=== PATIENT | female | born 1955 | race Hispanic/Latino ===

== ENCOUNTER 2018-03-21 18:26 | Emergency (ER) | payer MEDICARE ==
[2018-03-21] MEDS ORDERED: DILAUDID IV ONE (22:47)
[2018-03-21] MEDS ORDERED: ZOFRAN ODT PO ONE (22:47)
[2018-03-21 23:08] LABS: Basophils % (Auto) 0.5 % (0.0-1.8); Eosinophils # (Auto) 0.3 K/mm3 (0.0-0.4); Eosinophils % (Auto) 2.8 % (0.0-4.3); Hematocrit 37.7 % (30.3-42.9); Hemoglobin 12.9 gm/dl (10.1-14.3); Lymphocytes # (Auto) 3.4 K/mm3 (1.2-5.4); Lymphocytes % (Auto) 36.5 % (13.4-35.0); Mean Corpuscular HGB Conc 34 % (30-34); Mean Corpuscular Hemoglobin 30 pg (28-32); Mean Corpuscular Volume 87 fl (79-97); Monocytes # (Auto) 0.8 K/mm3 (0.0-0.8); Monocytes % (Auto) 8.8 % (0.0-7.3); Platelet Count 267 K/mm3 (140-440); Red Blood Count 4.33 M/mm3 (3.65-5.03); Red Cell Distribution Width 14.2 % (13.2-15.2)
[2018-03-21 23:30] LABS: Alanine Aminotransferase 44 units/L (7-56); Albumin 4.5 g/dL (3.9-5); BUN/Creatinine Ratio 14; Blood Urea Nitrogen 10 mg/dL (7-17); Calcium 9.6 mg/dL (8.4-10.2); Hemolysis Index 4
--- NOTE | 2018-03-21 23:45 | XRay Report ---
FINAL REPORT PROCEDURE: XR CHEST ROUTINE 2V TECHNIQUE: PA and lateral chest radiographs were obtained. CPT 89998 HISTORY: chest pain COMPARISON: No prior studies are available for comparison. FINDINGS: Heart: Normal. Mediastinum/Vessels: Normal. Lungs/Pleural space: Normal. Bony thorax: No acute osseous abnormality. Other: IMPRESSION: Normal examination.
--- NOTE | 2018-03-22 00:31 | Emergency Department Report ---
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 Pain is worse with movement. No h/o trauma. Pt had an rt hip x-ray 5 days ago, which showed osteoarthritis. Never has had this pain before. PCP has given her Tylenol #3 for the pain. currently using 2 canes to walk with as opposed to 1, which is her baseline. H/o multiple spinal surgeries, years ago. For the past 2 days, pt has had intermittent CP/ tightness. It is nonexertional, nonpleuritic, nonpositional. Not affected by food. No h/o smoking. No fam h/o ACS. Severity scale (0 -10): 6 - Related Data Previous Rx's Medication Instructions Recorded Last Taken Type HYDROcodone/ACETAMINOPHEN [[place] 1 each PO Q6H PRN #10 tablet 03/22/18 Unknown Rx 5-325 Tablet] Allergies Allergy/AdvReac Type Severity Reaction Status Date / Time morphine Allergy Unknown Unverified 03/17/16 11:00 doxycycline calcium AdvReac Unknown Unverified 03/17/16 11:00 [From Vibramycin] doxycycline hyclate AdvReac Unknown Unverified 03/17/16 11:00 [From Vibramycin] doxycycline monohydrate AdvReac Unknown Unverified 03/17/16 11:00 [From Vibramycin] Penicillins AdvReac Unknown Unverified 03/17/16 11:00 sulfamethoxazole AdvReac Unknown Unverified 03/17/16 11:00 [From Septra] trimethoprim [From Septra] AdvReac Unknown Unverified 03/17/16 11:00 venlafaxine AdvReac Unknown Unverified 03/17/16 11:00 CLENDAMYACIN AdvReac Unknown Uncoded 03/17/16 11:00 ED Review of Systems ROS: Stated complaint: LOWER EXTREMITY/PELVIC PAIN/PAINFUL URINATION Other details as noted in HPI Comment: All other systems reviewed and negative Cardiovascular: chest pain Musculoskeletal: arthralgia, myalgia Neurological: abnormal gait. denies: numbness, paresthesias ED Past Medical Hx - Past Medical History Hx Arthritis: Yes Additional medical history: chronic back pain. - Social History Smoking Status: Never Smoker Substance Use Type: None - Medications Home Medications: Home Medications Medication Instructions Recorded Confirmed Last Taken Type HYDROcodone/ACETAMINOPHEN [[place] 1 each PO Q6H PRN #10 tablet 03/22/18 Unknown Rx 5-325 Tablet] ED Physical Exam - General Limitations: No Limitations General appearance: alert, in no apparent distress - Head Head exam: Present: atraumatic, normocephalic - Eye Eye exam: Present: normal appearance - ENT ENT exam: Present: mucous membranes moist - Neck Neck exam: Present: normal inspection - Respiratory Respiratory exam: Present: normal lung sounds bilaterally. Absent: respiratory distress - Cardiovascular Cardiovascular Exam: Present: regular rate, normal rhythm. Absent: systolic murmur, diastolic murmur, rubs, gallop - GI/Abdominal GI/Abdominal exam: Present: soft, tenderness (RLQ/RT inguinal crease), normal bowel sounds. Absent: guarding, rebound - Extremities Exam Extremities exam: Present: normal inspection - Back Exam Back exam: Present: normal inspection, paraspinal tenderness (Rt>LT paralumbar) , other (no saddle anesthesia, bilateral LE leg strength 5/5. Pain with any movement of her right hip. Mild Rt IT band tenderness) - Neurological Exam Neurological exam: Present: alert, oriented X3 - Psychiatric Psychiatric exam: Present: normal affect, normal mood - Skin Skin exam: Present: warm, dry, intact, normal color. Absent: rash ED Course Vital Signs 03/21/18 03/21/18 03/21/18 18:46 23:00 23:07 Temperature 98.3 F 98.1 F Pulse Rate 81 84 Respiratory 18 14 Rate Blood Pressure 130/78 170/96 Blood Pressure 152/79 [Left] O2 Sat by Pulse 95 99 99 Oximetry 03/22/18 03/22/18 03/22/18 00:57 01:00 02:13 Temperature Pulse Rate 77 81 77 Respiratory 13 11 L Rate Blood Pressure 151/77 156/84 156/84 Blood Pressure [Left] O2 Sat by Pulse 97 96 Oximetry - Reevaluation(s) Reevaluation #1: Patient was given IV Dilaudid for pain control. This helped, but pain is returning. Lab work is unremarkable. CT imaging of the spine shows mild to moderate now narrowing diffusely in the lumbar spine. I discussed the right hip with Dr. Noland, radiology, who said that there is no evidence of fracture at the lesser size greater trochanter, femoral neck, femoral head. He said the joint space seemed adequate. There is no joint effusion. I will order inflammatory markers as a screen for septic arthritis. I am concerned for possible avascular necrosis of the femoral head with lower suspicion for cauda equina. 03/22/18 01:46 Reevaluation #2: Inflammatory markers are unremarkable. I went back and discussed the patient's h/o presentation. She has no weakness or incontinence. She is endorsing right groin pain that is severe enough to limit her walking. Pt stop taking her tylenol #3s 3 days ago because she felt that they weren't helping. XR rt hip are unremarkable. Pt is unable to get a MRI hip 2/2 nerve stimulator. Will have her follow up with her orthopedist for further evaluation of her hip and her pcp for further pain control. Low suspicion for cauda equina. 03/22/18 03:06 ED Medical Decision Making - Lab Data Result diagrams: 03/21/18 22:51 03/21/18 22:51 - EKG Data -: EKG Interpreted by Me EKG shows normal: sinus rhythm, axis, intervals, QRS complexes, ST-T waves Rate: normal - EKG Data Interpretation: no acute changes - Differential Diagnosis cauda equina, appendicitis, fracture, dislocation, osteo, DDD, strain Critical care attestation.: If time is entered above; I have spent that time in minutes in the direct care of this critically ill patient, excluding procedure time. ED Disposition Clinical Impression: Right groin pain Disposition: DC-01 TO HOME OR SELFCARE Is pt being admited?: No Does the pt Need Aspirin: No Condition: Stable Additional Instructions: Please follow up with your orthopedic doctor for further evaluation of your right hip. Use a walker to help you be more stable when walking. Talk with your family doctor about better pain control. Prescriptions: HYDROcodone/ACETAMINOPHEN [[place] 5-325 Tablet] 1 each PO Q6H PRN #10 tablet PRN Reason: Pain, Moderate (4-6) Referrals: PRIMARY CARE,MD [Primary Care Provider] - 3-5 Days
--- NOTE | 2018-03-22 01:16 | Cat Scan Report ---
FINAL REPORT EXAM: CT ABDOMEN PELVIS W CON HISTORY: Rt flank/hip pain TECHNIQUE: Routine axial imaging was obtained of the abdomen and pelvis following the intravenous injection of 100 cc of Omnipaque 300. Delayed imaging was obtained through the kidneys ureters and bladder. Sagittal and coronal reconstructions were reviewed. FINDINGS: The lung bases do not show infiltrates or effusions. There is a small hiatal hernia. The liver reveals diminished attenuation suggesting mild hepatic steatosis. The gallbladder has been removed. The biliary tree is not dilated. The pancreas is mildly atrophic. The spleen and adrenal glands appear normal. The kidneys enhance normally. There is no evidence of hydronephrosis. There is a punctate calcification lower pole the right kidney. There calcification of the abdominal aorta. The vasculatures otherwise enhance normally. There is a small umbilical hernia containing omental fat. The appendix is not enlarged. Bowel loops are normal in caliber and course. There are uncomplicated diverticula in the sigmoid colon. In the pelvis the uterus and bladder appear normal. There is a small right inguinal hernia containing omental fat. The skeletal structures reveal multilevel disc degeneration in the lumbar spine. There is also a TENS unit overlying the left flank area with leads extending into lower thoracic spine. IMPRESSION: Cholecystectomy. No acute process in the abdomen and pelvis. Mild hepatic steatosis. No evidence of hydronephrosis or appendicitis. Small umbilical hernia containing omental fat. Uncomplicated sigmoid diverticulosis. Multilevel disc degeneration in the lumbar spine.
--- NOTE | 2018-03-22 01:20 | Cat Scan Report ---
FINAL REPORT EXAM: CT LUMBAR SPINE WO CON HISTORY: Rt flank/hip pain TECHNIQUE: Routine axial imaging was obtained of the lumbar spine without IV contrast with sagittal and coronal reconstructions. FINDINGS: At the L5-S1 level the disc height is preserved. There is bilateral moderate to severe facet arthropathy changes. There is canal stenosis at this level. At the L4-5 level there is moderate to severe narrowing of the disc with moderate canal stenosis. There is severe bilateral facet arthropathy changes. At the L3-4 level there is mild narrowing of the disc. There moderate to severe canal stenosis with bilateral moderate facet arthropathy changes. At the L2-3 level there gopf-[id number] narrowing of the disc. There is moderate canal stenosis with bilateral hzai-il-dywvktuf facet arthropathy changes. At the L1-2 level the disc height is preserved. The canal size is normal. There is mild facet arthropathy changes. At the T12-L1 level there is severe disc degeneration with endplate spurring. The canal size is borderline. The surrounding soft tissues reveal TENS unit leads extending into the lower thoracic spine. There is calcification of the abdominal aorta. IMPRESSION: Multilevel disc degeneration with multilevel spinal stenosis changes and facet arthropathy changes as described. No evidence of acute fracture.
[2018-03-22] MEDS ORDERED: NORCO 5/325 PO ONE (01:29)
[2018-03-22 01:32] VITALS: BP 156/84
--- NOTE | 2018-03-22 02:41 | XRay Report ---
FINAL REPORT EXAM: XR HIP 2-3V RT HISTORY: right hip pain TECHNIQUE: An AP view of the pelvis was obtained with a frogleg view of the right hip. FINDINGS: There is very mild narrowing of the right hip joint space. There is no evidence of fracture or joint effusion. There is generalized osteoporosis. The left hip joint and SI joints are unremarkable. Excreted IV contrast is noted in the bladder. IMPRESSION: Very mild arthritic changes right hip joint. No evidence of fracture or joint effusion.
[2018-03-22] MEDS ORDERED: PERCOCET 5/325 PO ONE (03:04)
== END 2018-03-22 03:30 | disposition home or self-care (01) ==
LOC: ED 18:26
DX: M25.551 Pain in right hip (principal); Z88.5 Allergy status to narcotic agent; Z88.1 Allergy status to other antibiotic agents; Z88.2 Allergy status to sulfonamides; Z88.0 Allergy status to penicillin; M19.90 Unspecified osteoarthritis, unspecified site; M54.9 Dorsalgia, unspecified; G89.29 Other chronic pain
CPT/HCPCS: 36415; 71046; 72131; 73502; 74177; 80053; 84484; 85025; 85652; 86140; 93005; 93010; 96374; 99284; J1170; Q9967; Q0162

== ENCOUNTER 2019-06-12 22:17 | Observation (INO) | payer MEDICARE ==
[2019-06-12] MEDS ORDERED: ASPIRIN 325 MG TAB PO ONE (22:39)
[2019-06-12 22:51] LABS: Basophils % (Auto) 0.3 % (0.0-1.8); Eosinophils # (Auto) 0.2 K/mm3 (0.0-0.4); Eosinophils % (Auto) 1.9 % (0.0-4.3); Hemoglobin 12.4 gm/dl (10.1-14.3); Lymphocytes % (Auto) 25.5 % (13.4-35.0); Mean Corpuscular HGB Conc 34 % (30-34); Mean Corpuscular Volume 86 fl (79-97); Monocytes # (Auto) 0.9 K/mm3 (0.0-0.8); Monocytes % (Auto) 7.8 % (0.0-7.3); Platelet Count 238 K/mm3 (140-440); Red Blood Count 4.32 M/mm3 (3.65-5.03)
[2019-06-12] MEDS ORDERED: SODIUM CHLORIDE 0.9% 1000 ML IV SOLN IV ONE (22:55)
--- NOTE | 2019-06-12 23:01 | Emergency Department Report ---
HPI - General Chief Complaint: Dizziness Time Seen by Provider: 06/12/19 22:40 - HPI HPI: Room 23 The patient is a 64-year-old female presenting with a chief complaint of dizziness. The patient states today she felt very tired before having dinner. While eating dinner the patient continued to feel tired and states when she stood up she began to feel lightheaded and dizzy she states she heard "waves" in her ear and ice to the back of her head. The patient states she sat down but her symptoms did not improve. Family states at 21:5 the patient was talking but not making sense and appeared to have slurred speech. Subsequently the patient was brought into the ED. When asked how she is feeling currently the patient states she feels tired and lightheaded Location: [See above] Duration: [See above] Quality: [See above] Severity: [See above] Timing: [See above] Context: [See above] Modifying factors: [See above] Associated signs and symptoms: [see above] ED Past Medical Hx - Past Medical History Previous Medical History?: Yes Hx Diabetes: Yes Hx Arthritis: Yes Additional medical history: chronic back pain. - Surgical History Past Surgical History?: No Hx Cholecystectomy: Yes Additional Surgical History: Bilateral tubal ligation, 2, tonsillectomy, back surgery, nerve stimulator - Family History Family history: no significant - Social History Smoking Status: Former Smoker (none 40 years) Substance Use Type: None (denies illicit drug use) - Medications Home Medications: Home Medications Medication Instructions Recorded Confirmed Last Taken Type HYDROcodone/ACETAMINOPHEN [[place] 1 each PO Q6H PRN #10 tablet 03/22/18 Unknown Rx 5-325 Tablet] ED Review of Systems ROS: Stated complaint: DIZZINESS/LIGHTHEADED Other details as noted in HPI Constitutional: no symptoms reported Eyes: denies: eye pain ENT: denies: throat pain Respiratory: denies: no symptoms reported Cardiovascular: denies: chest pain Gastrointestinal: denies: abdominal pain Genitourinary: denies: dysuria Musculoskeletal: denies: back pain Neurological: other (lightheadedness) Physical Exam - Physical Exam Vital Signs: Vital Signs 06/12/19 22:36 Temperature 98 F Pulse Rate 84 Respiratory 20 Rate Blood Pressure 96/67 O2 Sat by Pulse 99 Oximetry Physical Exam: GENERAL: The patient is well-developed well-nourished female lying on stretcher not appearing to be in acute distress. [] HEENT: Normocephalic. Atraumatic. Extraocular motions are intact. Patient has moist mucous membranes. NECK: Supple. No meningitic signs are noted. Trachea midline CHEST/LUNGS: Clear to auscultation. There is no respiratory distress noted. HEART/CARDIOVASCULAR: Regular. There is no tachycardia. There is no gallop rub or murmur. ABDOMEN: Abdomen is soft, nontender. Patient has normal bowel sounds. There is no abdominal distention. SKIN: There is no rash. There is no edema. There is no diaphoresis. NEURO: The patient is awake, alert, and oriented. The patient is cooperative. The patient has no focal neurologic deficits. The patient has normal speech. Cranial nerves II through XII grossly intact, no drift MUSCULOSKELETAL: There is no evidence of acute injury. ED Course Vital Signs 06/12/19 22:36 Temperature 98 F Pulse Rate 84 Respiratory 20 Rate Blood Pressure 96/67 O2 Sat by Pulse 99 Oximetry ED Medical Decision Making - Lab Data Result diagrams: 06/12/19 22:39 06/12/19 23:07 Laboratory Tests 06/12/19 06/12/19 06/12/19 22:39 22:39 23:07 WBC 11.9 H RBC 4.32 Hgb 12.4 Hct 37.0 MCV 86 MCH 29 MCHC 34 RDW 14.0 Plt Count 238 Lymph % (Auto) 25.5 [place] % (Auto) 7.8 H Eos % (Auto) 1.9 Baso % (Auto) 0.3 Lymph # 3.0 [place] # 0.9 H Eos # 0.2 Baso # 0.0 Seg Neutrophils % 64.5 Seg Neutrophils # 7.6 PT INR APTT Sodium 135 L 134 L Potassium 3.9 4.0 Chloride 95.5 L 95.8 L Carbon Dioxide 23 24 Anion Gap 20 18 BUN 23 H 22 H Creatinine 1.6 H 1.6 H Estimated GFR 32 32 BUN/Creatinine Ratio 14 14 Glucose 209 H 208 H Lactic Acid Calcium 9.2 9.3 Total Bilirubin 0.30 AST 21 ALT 22 Alkaline Phosphatase 80 Troponin T < 0.010 Total Protein 6.9 Albumin 3.9 Albumin/Globulin Ratio 1.3 TSH Free T4 Urine Color Urine Turbidity Urine pH Ur Specific [place] Urine Protein Urine Glucose (UA) Urine Ketones Urine Blood Urine Nitrite Urine Bilirubin Urine Urobilinogen Ur Leukocyte Esterase Urine WBC (Auto) Urine RBC (Auto) U Epithel Cells (Auto) Urine Bacteria (Auto) Urine Mucus 06/12/19 06/12/19 06/12/19 23:07 23:07 23:07 WBC RBC Hgb Hct MCV MCH MCHC RDW Plt Count Lymph % (Auto) [place] % (Auto) Eos % (Auto) Baso % (Auto) Lymph # [place] # Eos # Baso # Seg Neutrophils % Seg Neutrophils # PT 14.0 INR 1.09 APTT 29.0 Sodium Potassium Chloride Carbon Dioxide Anion Gap BUN Creatinine Estimated GFR BUN/Creatinine Ratio Glucose Lactic Acid 1.60 Calcium Total Bilirubin AST ALT Alkaline Phosphatase Troponin T Total Protein Albumin Albumin/Globulin Ratio TSH 5.040 H Free T4 1.54 H Urine Color Urine Turbidity Urine pH Ur Specific [place] Urine Protein Urine Glucose (UA) Urine Ketones Urine Blood Urine Nitrite Urine Bilirubin Urine Urobilinogen Ur Leukocyte Esterase Urine WBC (Auto) Urine RBC (Auto) U Epithel Cells (Auto) Urine Bacteria (Auto) Urine Mucus 06/12/19 Unknown WBC RBC Hgb Hct MCV MCH MCHC RDW Plt Count Lymph % (Auto) [place] % (Auto) Eos % (Auto) Baso % (Auto) Lymph # [place] # Eos # Baso # Seg Neutrophils % Seg Neutrophils # PT INR APTT Sodium Potassium Chloride Carbon Dioxide Anion Gap BUN Creatinine Estimated GFR BUN/Creatinine Ratio Glucose Lactic Acid Calcium Total Bilirubin AST ALT Alkaline Phosphatase Troponin T Total Protein Albumin Albumin/Globulin Ratio TSH Free T4 Urine Color Yellow Urine Turbidity Cloudy Urine pH 5.0 Ur Specific [place] 1.006 Urine Protein <15 mg/dl Urine Glucose (UA) Neg Urine Ketones Neg Urine Blood Neg Urine Nitrite Neg Urine Bilirubin Neg Urine Urobilinogen < 2.0 Ur Leukocyte Esterase Lg Urine WBC (Auto) 34.0 H Urine RBC (Auto) 13.0 U Epithel Cells (Auto) 2.0 Urine Bacteria (Auto) 1+ Urine Mucus Few - EKG Data -: EKG Interpreted by Me EKG shows normal: sinus rhythm Rate: normal - EKG Data When compared to previous EKG there are: previous EKG unavailable Interpretation: other (no ischemic changes seen) - Radiology Data Radiology results: report reviewed (CT head, chest x-ray), image reviewed (CT head, chest x-ray) interpreted by me: Chest x-ray-no focal infiltrates, no pneumothorax [address] [address] Cat Scan Report Signed Patient: BARBARA DARLING MR#: [id number] : 1955 Acct:[id number] Age/Sex: 64 / F ADM Date: 06/12/19 Loc: ED Attending Dr: Ordering Physician: AUREA GONCALVES MD Date of Service: 06/12/19 Procedure(s): CT head/brain wo con Accession Number(s): [id number] cc: AUREA GONCALVES MD CT head without contrast INDICATION : Altered mental status. TECHNIQUE: Axial imaging performed from the skull apex through the skull base without the use of contrast. All CT examinations performed at this facility utilize dose modulation, iterative reconstruction or weight-based dosing, when appropriate, to reduce radiation dose to as low as reasonably achievable. COMPARISON: None FINDINGS: No acute intracranial hemorrhage or parenchymal abnormality. Ventricles are normal in size and appear symmetric. Soft tissues including the orbits appear normal. No acute osseous abnormality. Sinuses and mastoid air cells are clear. IMPRESSION: No acute abnormality. Signer Name: Mello Fuchs MD Signed: 06/12/2019 11:56 PM Workstation Name: [id number] Transcribed By: BC Dictated By: Mello Fuchs MD Electronically Authenticated By: Mello Fuchs MD Signed Date/Time: 06/12/192355 DD/ 54 TD/TT: [address] [address] XRay Report Signed Patient: BARBARA DARLING MR#: [id number] : 1955 Acct:[id number] Age/Sex: 64 / F ADM Date: 06/12/19 Loc: ED Attending Dr: Ordering Physician: AUREA GONCALVES MD Date of Service: 06/12/19 Procedure(s): XR chest 1V ap Accession Number(s): [id number] cc: AUREA GONCALVES MD Fluoro Time In Minutes: CHEST 1 VIEW INDICATION / CLINICAL INFORMATION: Chest Pain. COMPARISON: None available. FINDINGS: SUPPORT DEVICES: None. HEART / MEDIASTINUM: No significant abnormality. LUNGS / PLEURA: No significant pulmonary or pleural abnormality. No pneumothorax. ADDITIONAL FINDINGS: No significant additional findings. IMPRESSION: 1. No acute findings. Signer Name: Mello Fuchs MD Signed: 06/12/2019 11:27 PM Workstation Name: [id number] Transcribed By: HERBERT Dictated By: Mello Fuchs MD Electronically Authenticated By: Mello Fuchs MD Signed Date/Time: 06/12/192326 DD/ 26 TD/TT: - Differential Diagnosis dehydration, sepsis, symptomatic anemia Critical care attestation.: If time is entered above; I have spent that time in minutes in the direct care of this critically ill patient, excluding procedure time. ED Disposition Clinical Impression: UTI (urinary tract infection), Hypotension, Lightheadedness Disposition: 09 OP ADMIT IP TO THIS HOSP Is pt being admited?: Yes Does the pt Need Aspirin: Yes Condition: Fair Referrals: PRIMARY CARE, [Primary Care Provider] - 3-5 Days Time of Disposition: 02:01 (hospitalist paged (Dr. Jossy Tapia))
[2019-06-12 23:11] LABS: BUN/Creatinine Ratio 14; Blood Urea Nitrogen 23 mg/dL (7-17); Calcium 9.2 mg/dL (8.4-10.2); Hemolysis Index 32
--- NOTE | 2019-06-12 23:32 | XRay Report ---
CHEST 1 VIEW INDICATION / CLINICAL INFORMATION: Chest Pain. COMPARISON: None available. FINDINGS: SUPPORT DEVICES: None. HEART / MEDIASTINUM: No significant abnormality. LUNGS / PLEURA: No significant pulmonary or pleural abnormality. No pneumothorax. ADDITIONAL FINDINGS: No significant additional findings. IMPRESSION: 1. No acute findings. Signer Name: Mello Fuchs MD Signed: 06/12/2019 11:27 PM Workstation Name: [id number]
[2019-06-12 23:40] LABS: INR 1.09 (0.87-1.13)
[2019-06-12 23:52] LABS: Albumin 3.9 g/dL (3.9-5); Calcium 9.3 mg/dL (8.4-10.2)
[2019-06-12 23:56] LABS: Free T4 (Free Thyroxine) 1.54 ng/dL (0.76-1.46)
--- NOTE | 2019-06-13 | Cat Scan Report ---
CT head without contrast INDICATION : Altered mental status. TECHNIQUE: Axial imaging performed from the skull apex through the skull base without the use of con trast. All CT examinations performed at this facility utilize dose modulation, iterative reconstruct ion or weight-based dosing, when appropriate, to reduce radiation dose to as low as reasonably achiev able. COMPARISON: None FINDINGS: No acute intracranial hemorrhage or parenchymal abnormality. Ventricles are normal in si ze and appear symmetric. Soft tissues including the orbits appear normal. No acute osseous abnorm ality. Sinuses and mastoid air cells are clear. IMPRESSION: No acute abnormality. Signer Name: Mello Fuchs MD Signed: 06/12/2019 11:56 PM Workstation Name: [id number]
[2019-06-13 01:37] LABS: Bacteria,Urine 1+ /HPF (Negative); Bilirubin,Urine NEG (Negative); Blood,Urine NEG (Negative); Color,Urine Yellow (Yellow); Mucus,Urine FEW /HPF; Protein,Urine <15 mg/dL mg/dL (Negative); Urobilinogen,Urine < 2.0 mg/dL (<2.0)
[2019-06-13] MEDS ORDERED: ONDANSETRON 4 MG/2 ML INJ IV PRN (02:16)
[2019-06-13] MEDS ORDERED: DEXTROSE 50% IN WATER (25GM) 50 ML SYRINGE IV PRN (02:16)
[2019-06-13] MEDS ORDERED: ACETAMINOPHEN 325 MG TAB PO PRN ×2 (02:16)
[2019-06-13] MEDS ORDERED: oxyCODONE /ACETAMINOPHEN 5-325MG TAB PO PRN (02:18)
--- NOTE | 2019-06-13 02:35 | History and Physical Report ---
<PAMELA SUERO - Last Filed: 06/13/19 03:31> History of Present Illness Date of examination: 06/13/19 Date of admission: 06/13/2019 Chief complaint: Slurred speech, dizziness History of present illness: 64-year-old female with history of IBS, chronic back pain, hypertension, diabetes, and arthritis who presents [facility] with complaints of dizziness and slurred speech. Patient's daughter is present at bedside and has assisted with providing history. Yesterday evening prior to having dinner, pt states that she did not feel as if she was in her usual state of health. For some reason she felt very tired. When she stood up from the dinner table, she felt dizzy and lightheaded. She describes the feeling as hearing "waves in the ears and ice to back of head". She immediately sat down hoping that she would feel better, her symptoms did not improve. Shortly after her family noticed that her speech was slurred for approximately 1 hour prior has since resolved. Denies: n/v, headache, cough, dysuria, visual disturbances or recent fall/injury Past History Past Medical History: arthritis, diabetes, hypertension, renal failure (IBS), other (chronic back pain, debility ambulates with walker/cane at baseline) Past Surgical History: cholecystectomy, (x2), tonsillectomy, Other (Bilateral tubal ligation, multiple back surgeries, nerve stimulator) Social history: lives with family Family history: hypertension Medications and Allergies Allergies Allergy/AdvReac Type Severity Reaction Status Date / Time morphine Allergy Unknown Unverified 03/17/16 11:00 doxycycline calcium AdvReac Unknown Unverified 03/17/16 11:00 [From Vibramycin] doxycycline hyclate AdvReac Unknown Unverified 03/17/16 11:00 [From Vibramycin] doxycycline monohydrate AdvReac Unknown Unverified 03/17/16 11:00 [From Vibramycin] Penicillins AdvReac Unknown Unverified 03/17/16 11:00 sulfamethoxazole AdvReac Unknown Unverified 03/17/16 11:00 [From Septra] trimethoprim [From Septra] AdvReac Unknown Unverified 03/17/16 11:00 venlafaxine AdvReac Unknown Unverified 03/17/16 11:00 CLENDAMYACIN AdvReac Unknown Uncoded 03/17/16 11:00 Home Medications Medication Instructions Recorded Confirmed Last Taken Type HYDROcodone/ACETAMINOPHEN [[place] 1 each PO Q6H PRN #10 tablet 03/22/18 Unknown Rx 5-325 Tablet] Amitiza 24 mg PO PRN 06/13/19 06/13/19 06/06/19 History Aspirin BABY CHEW TAB 81 mg PO ONCE 06/13/19 06/13/19 Unknown History AtorvaSTATin 20 mg PO ONCE 06/13/19 06/13/19 06/12/19 22:50 History Benadryl 06/13/19 Unknown History Calcium 600MG TAB 600 mg PO ONCE 06/13/19 06/13/19 06/12/19 19:35 History 600 mg Dicyclomine 10 mg PO TID 06/13/19 06/13/19 Unknown History Fish Oil 06/13/19 Unknown History Inderal 80 mg PO ONCE 06/13/19 06/13/19 06/12/19 19:35 History 80 mg Januvia 100 mg PO ONCE 06/13/19 06/13/19 06/11/19 22:50 History 100 mg Multivitamin Tab PO ONCE 06/13/19 06/12/19 10:20 History 1 tab Neurontin 800 mg PO TID 06/13/19 06/13/19 Unknown History Norvasc 10 mg PO ONCE 06/13/19 06/13/19 06/12/19 10:15 History 10 mg Protonix TAB 40 mg PO ONCE 06/13/19 06/13/19 Unknown History Ranitidine HCl 300 mg PO ONCE 06/13/19 06/13/19 Unknown History Vitamin B Complex PO ONCE 06/13/19 06/12/19 10:15 History Zyrtec 10mg tab 10 mg PO ONCE 06/13/19 06/13/19 06/12/19 10:20 History glipiZIDE 10 mg PO BID 06/13/19 06/13/19 06/12/19 19:35 History tiZANidine 4 mg PO Q6HR 06/13/19 06/13/19 06/12/19 20:30 History 4 mg traZODone 50 mg PO PRN 06/13/19 06/13/19 06/11/19 22:55 History Clopidogrel [Plavix] 75 mg PO QDAY #30 tablet 06/14/19 Unknown Rx levoFLOXacin [Levaquin TAB] 500 mg PO QDAY #3 tablet 06/14/19 Unknown Rx Active Meds: Active Medications Acetaminophen (Tylenol) 650 mg PO Q4H PRN PRN Reason: Pain MILD(1-3)/Fever >100.5/KIDD Acetaminophen (Tylenol) 650 mg PO Q4H PRN PRN Reason: Pain, Mild (1-3) Dextrose (D50w (25gm) Syringe) 50 ml IV Q30MIN PRN PRN Reason: Hypoglycemia Enoxaparin Sodium (Enoxaparin) 30 mg SUB-Q QDAY MESSI Levofloxacin/Dextrose (Levaquin 500mg/100ml) 500 mg in 100 mls @ 100 mls/hr IV ONCE ONE; Protocol Stop: 06/13/19 02:58 Sodium Chloride (Nacl 0.9% 1000 Ml) 1,000 mls @ 100 mls/hr IV DIRECT MESSI Stop: 06/13/19 12:00 Levofloxacin/Dextrose (Levaquin 500mg/100ml) 500 mg in 100 mls @ 100 mls/hr IV Q24HR MESSI; Protocol Insulin Human Lispro (Humalog) 0 unit SUB-Q ACHS MESSI; Protocol Ondansetron HCl (Zofran) 4 mg IV Q6H PRN PRN Reason: Nausea And Vomiting Oxycodone/Acetaminophen (Percocet 5/325) 1 tab PO Q6H PRN PRN Reason: Pain, Moderate (4-6) Sodium Chloride (Sodium Chloride Flush Syringe 10 Ml) 10 ml IV BID MESSI Sodium Chloride (Sodium Chloride Flush Syringe 10 Ml) 10 ml IV PRN PRN PRN Reason: LINE FLUSH Review of Systems All systems: negative Constitutional: fatigue Neurological: change in speech, change in mentation, confusion, other (light headedness, dizzy) Exam - Physical Exam Narrative exam: General appearance: Present: No acute distress, alert and oriented 3, pleasant, well-nourished, older adult female - EENT Eyes: Present: PERRL, EOM intact ENT: hearing intact, normal dentition - Neck Neck: Present: supple, normal ROM - Respiratory Respiratory effort: Non-labored Respiratory: bilateral: CTA - Cardiovascular Heart rate:60 (bpm) Rhythm:SR Heart Sounds: Present: S1, S2. - Extremities Extremities: no ischemia, pulses intact - Peripheral Assessment Peripheral Pulses: within normal limits - Abdominal General gastrointestinal: soft, non-tender, normal bowel sounds, - Integumentary Integumentary: Present: warm, dry - Musculoskeletal Musculoskeletal: generalized weakness, 5/5 motor strength in upper extremities, 5/5 motor strength in left lower extremity, limited mobility right lower extremity able to move against gravity but not resistance, ambulates with cane or walker at baseline -Neurological Neurological: CN II-XII grossly intact - Psychiatric Psychiatric: cooperative - Constitutional Vitals: Temp Pulse Resp BP Pulse Ox 98 F 71 11 L 105/64 100 06/12/19 22:36 06/12/19 23:01 06/12/19 23:01 06/13/19 00:00 06/13/19 00:00 Results - Labs CBC & Chem 7: 06/12/19 22:39 06/12/19 23:07 Labs: Laboratory Last Values WBC 11.9 K/mm3 (4.5-11.0) H 06/12/19 22:39 RBC 4.32 M/mm3 (3.65-5.03) 06/12/19 22:39 Hgb 12.4 gm/dl (10.1-14.3) 06/12/19 22:39 Hct 37.0 % (30.3-42.9) 06/12/19 22:39 MCV 86 fl (79-97) 06/12/19 22:39 MCH 29 pg (28-32) 06/12/19 22:39 MCHC 34 % (30-34) 06/12/19 22:39 RDW 14.0 % (13.2-15.2) 06/12/19 22:39 Plt Count 238 K/mm3 (140-440) 06/12/19 22:39 Lymph % (Auto) 25.5 % (13.4-35.0) 06/12/19 22:39 [place] % (Auto) 7.8 % (0.0-7.3) H 06/12/19 22:39 Eos % (Auto) 1.9 % (0.0-4.3) 06/12/19 22:39 Baso % (Auto) 0.3 % (0.0-1.8) 06/12/19 22:39 Lymph # 3.0 K/mm3 (1.2-5.4) 06/12/19 22:39 [place] # 0.9 K/mm3 (0.0-0.8) H 06/12/19 22:39 Eos # 0.2 K/mm3 (0.0-0.4) 06/12/19 22:39 Baso # 0.0 K/mm3 (0.0-0.1) 06/12/19 22:39 Seg Neutrophils % 64.5 % (40.0-70.0) 06/12/19 22:39 Seg Neutrophils # 7.6 K/mm3 (1.8-7.7) 06/12/19 22:39 PT 14.0 Sec. (12.2-14.9) 06/12/19 23:07 INR 1.09 (0.87-1.13) 06/12/19 23:07 APTT 29.0 Sec. (24.2-36.6) 06/12/19 23:07 Sodium 134 mmol/L (137-145) L 06/12/19 23:07 Potassium 4.0 mmol/L (3.6-5.0) 06/12/19 23:07 Chloride 95.8 mmol/L (98-107) L 06/12/19 23:07 Carbon Dioxide 24 mmol/L (22-30) 06/12/19 23:07 Anion Gap 18 mmol/L 06/12/19 23:07 BUN 22 mg/dL (7-17) H 06/12/19 23:07 Creatinine 1.6 mg/dL (0.7-1.2) H 06/12/19 23:07 Estimated GFR 32 ml/min 06/12/19 23:07 BUN/Creatinine Ratio 14 % 06/12/19 23:07 Glucose 208 mg/dL (65-100) H 06/12/19 23:07 Lactic Acid 1.60 mmol/L (0.7-2.0) 06/12/19 23:07 Calcium 9.3 mg/dL (8.4-10.2) 06/12/19 23:07 Total Bilirubin 0.30 mg/dL (0.1-1.2) 06/12/19 23:07 AST 21 units/L (5-40) 06/12/19 23:07 ALT 22 units/L (7-56) 06/12/19 23:07 Alkaline Phosphatase 80 units/L (35-129) 06/12/19 23:07 Troponin T < 0.010 ng/mL (0.00-0.029) 06/12/19 22:39 Total Protein 6.9 g/dL (6.3-8.2) 06/12/19 23:07 Albumin 3.9 g/dL (3.9-5) 06/12/19 23:07 Albumin/Globulin Ratio 1.3 % 06/12/19 23:07 TSH 5.040 mlU/mL (0.270-4.200) H 06/12/19 23:07 Free T4 1.54 ng/dL (0.76-1.46) H 06/12/19 23:07 Urine Color Yellow (Yellow) 06/12/19 Unknown Urine Turbidity Cloudy (Clear) 06/12/19 Unknown Urine pH 5.0 (5.0-7.0) 06/12/19 Unknown Ur Specific [place] 1.006 (1.003-1.030) 06/12/19 Unknown Urine Protein <15 mg/dl mg/dL (Negative) 06/12/19 Unknown Urine Glucose (UA) Neg mg/dL (Negative) 06/12/19 Unknown Urine Ketones Neg mg/dL (Negative) 06/12/19 Unknown Urine Blood Neg (Negative) 06/12/19 Unknown Urine Nitrite Neg (Negative) 06/12/19 Unknown Urine Bilirubin Neg (Negative) 06/12/19 Unknown Urine Urobilinogen < 2.0 mg/dL (<2.0) 06/12/19 Unknown Ur Leukocyte Esterase Lg (Negative) 06/12/19 Unknown Urine WBC (Auto) 34.0 /HPF (0.0-6.0) H 06/12/19 Unknown Urine RBC (Auto) 13.0 /HPF (0.0-6.0) 06/12/19 Unknown U Epithel Cells (Auto) 2.0 /HPF (0-13.0) 06/12/19 Unknown Urine Bacteria (Auto) 1+ /HPF (Negative) 06/12/19 Unknown Urine Mucus Few /HPF 06/12/19 Unknown - Imaging and Cardiology Imaging and Cardiology: CT Head: FINDINGS: No acute intracranial hemorrhage or parenchymal abnormality. Ventricles are normal in size and appear symmetric. Soft tissues including the orbits appear normal. No acute osseous abnormality. Sinuses and mastoid air cells are clear. IMPRESSION: No acute abnormality. CXR: FINDINGS: SUPPORT DEVICES: None. HEART / MEDIASTINUM: No significant abnormality. LUNGS / PLEURA: No significant pulmonary or pleural abnormality. No pneumothorax. ADDITIONAL FINDINGS: No significant additional findings. IMPRESSION: 1. No acute findings. Assessment and Plan Assessment and plan: 64-year-old female with history of IBS, chronic back pain, hypertension, diabetes, and arthritis who presents [facility] ED with complaints of dizziness and slurred speech. At time of my examination patient is sitting up in stretcher able to maintain conversation. When asked how she feels, she states that she is tired but doesn't feel as tired as before. Patient has nerve stimulator to left buttock. At baseline patient ambulates with cane and or walker. She has limited mobility to right lower extremity d/t chronic back pain and multiple back surgeries. Will admit for further evaluation. UTI -Urine WBC 34 -Urine culture pending -Start IV Abx TIA R/O CVA -Pt c/o of slurred speech x1 hour, confirmed by daughter at bedside -CT Head negative -Patient has implanted nerve stimulator unable to have MRI Head -Neurology consulted -Neuro Checks -PT/OT eval pending -Lipid panel pending -Start ASA and statin ALY -??Superimposed chronic renal impairment -Cr on admission 1.6 with GFR 32 -Baseline 0.7 (03/2018) -Avoid nephrotoxin agents -Renal dose all meds DM2 -POC BG monitoring -SSI coverage prn -Hgb A1c pending Hypotension -BP on admission 93/67 -Responsive to fluid resuscitation -On IVF -Continue to monitor BP -Hold all antihypertensive meds DVT PPX -On Lovenox Advance Directives: No VTE prophylaxis?: Chemical Plan of care discussed with patient/family: Yes <ELTON CIFUENTES - Last Filed: 06/14/19 22:20> History of Present Illness Date of admission: 06/13/19 03:53 Medications and Allergies Active Meds: Active Medications Acetaminophen (Tylenol) 650 mg PO Q4H PRN PRN Reason: Pain, Mild (1-3) Aspirin (Baby Aspirin) 81 mg PO QDAY MESSI Atorvastatin Calcium (Lipitor) 40 mg PO QHS MESSI Dextrose (D50w (25gm) Syringe) 0 ml IV Q30MIN PRN PRN Reason: Hypoglycemia Enoxaparin Sodium (Enoxaparin) 30 mg SUB-Q QDAY MESSI Sodium Chloride (Nacl 0.9% 1000 Ml) 1,000 mls @ 100 mls/hr IV DIRECT MESSI Stop: 06/13/19 12:00 Last Admin: 06/13/19 05:11 Dose: 100 mls/hr Documented by: Levofloxacin/Dextrose (Levaquin 500mg/100ml) 500 mg in 100 mls @ 100 mls/hr IV Q24HR MESSI; Protocol Stop: 06/13/19 10:59 Levofloxacin/Dextrose (Levaquin 250mg/50ml) 250 mg in 50 mls @ 50 mls/hr IV Q24HR [facility] Insulin Human Lispro (Humalog) 0 unit SUB-Q ACHS MESSI; Protocol Ondansetron HCl (Zofran) 4 mg IV Q6H PRN PRN Reason: Nausea And Vomiting Oxycodone/Acetaminophen (Percocet 5/325) 2 tab PO Q6H PRN PRN Reason: Pain, Moderate (4-6) Last Admin: 06/13/19 05:28 Dose: 2 tab Documented by: Sodium Chloride (Sodium Chloride Flush Syringe 10 Ml) 10 ml IV BID MESSI Sodium Chloride (Sodium Chloride Flush Syringe 10 Ml) 10 ml IV PRN PRN PRN Reason: LINE FLUSH Exam - Constitutional Vitals: Temp Pulse Resp BP Pulse Ox 97.3 F L 74 18 123/77 97 06/13/19 04:52 06/13/19 04:52 06/13/19 05:34 06/13/19 04:52 06/13/19 04:52 Results - Labs CBC & Chem 7: 06/14/19 05:56 06/14/19 05:56 Labs: Laboratory Last Values WBC 11.9 K/mm3 (4.5-11.0) H 06/12/19 22:39 RBC 4.32 M/mm3 (3.65-5.03) 06/12/19 22:39 Hgb 12.4 gm/dl (10.1-14.3) 06/12/19 22:39 Hct 37.0 % (30.3-42.9) 06/12/19 22:39 MCV 86 fl (79-97) 06/12/19 22:39 MCH 29 pg (28-32) 06/12/19 22:39 MCHC 34 % (30-34) 06/12/19 22:39 RDW 14.0 % (13.2-15.2) 06/12/19 22:39 Plt Count 238 K/mm3 (140-440) 06/12/19 22:39 Lymph % (Auto) 25.5 % (13.4-35.0) 06/12/19 22:39 [place] % (Auto) 7.8 % (0.0-7.3) H 06/12/19 22:39 Eos % (Auto) 1.9 % (0.0-4.3) 06/12/19 22:39 Baso % (Auto) 0.3 % (0.0-1.8) 06/12/19 22:39 Lymph # 3.0 K/mm3 (1.2-5.4) 06/12/19 22:39 [place] # 0.9 K/mm3 (0.0-0.8) H 06/12/19 22:39 Eos # 0.2 K/mm3 (0.0-0.4) 06/12/19 22:39 Baso # 0.0 K/mm3 (0.0-0.1) 06/12/19 22:39 Seg Neutrophils % 64.5 % (40.0-70.0) 06/12/19 22:39 Seg Neutrophils # 7.6 K/mm3 (1.8-7.7) 06/12/19 22:39 PT 14.0 Sec. (12.2-14.9) 06/12/19 23:07 INR 1.09 (0.87-1.13) 06/12/19 23:07 APTT 29.0 Sec. (24.2-36.6) 06/12/19 23:07 Sodium 134 mmol/L (137-145) L 06/12/19 23:07 Potassium 4.0 mmol/L (3.6-5.0) 06/12/19 23:07 Chloride 95.8 mmol/L (98-107) L 06/12/19 23:07 Carbon Dioxide 24 mmol/L (22-30) 06/12/19 23:07 Anion Gap 18 mmol/L 06/12/19 23:07 BUN 22 mg/dL (7-17) H 06/12/19 23:07 Creatinine 1.6 mg/dL (0.7-1.2) H 06/12/19 23:07 Estimated GFR 32 ml/min 06/12/19 23:07 BUN/Creatinine Ratio 14 % 06/12/19 23:07 Glucose 208 mg/dL (65-100) H 06/12/19 23:07 Hemoglobin A1c 7.6 % (4-6) H 06/13/19 02:29 Lactic Acid 0.90 mmol/L (0.7-2.0) 06/13/19 01:45 Calcium 9.3 mg/dL (8.4-10.2) 06/12/19 23:07 Total Bilirubin 0.30 mg/dL (0.1-1.2) 06/12/19 23:07 AST 21 units/L (5-40) 06/12/19 23:07 ALT 22 units/L (7-56) 06/12/19 23:07 Alkaline Phosphatase 80 units/L (35-129) 06/12/19 23:07 Troponin T < 0.010 ng/mL (0.00-0.029) 06/13/19 03:56 Total Protein 6.9 g/dL (6.3-8.2) 06/12/19 23:07 Albumin 3.9 g/dL (3.9-5) 06/12/19 23:07 Albumin/Globulin Ratio 1.3 % 06/12/19 23:07 TSH 5.040 mlU/mL (0.270-4.200) H 06/12/19 23:07 Free T4 1.54 ng/dL (0.76-1.46) H 06/12/19 23:07 Urine Color Yellow (Yellow) 06/12/19 Unknown Urine Turbidity Cloudy (Clear) 06/12/19 Unknown Urine pH 5.0 (5.0-7.0) 06/12/19 Unknown Ur Specific [place] 1.006 (1.003-1.030) 06/12/19 Unknown Urine Protein <15 mg/dl mg/dL (Negative) 06/12/19 Unknown Urine Glucose (UA) Neg mg/dL (Negative) 06/12/19 Unknown Urine Ketones Neg mg/dL (Negative) 06/12/19 Unknown Urine Blood Neg (Negative) 06/12/19 Unknown Urine Nitrite Neg (Negative) 06/12/19 Unknown Urine Bilirubin Neg (Negative) 06/12/19 Unknown Urine Urobilinogen < 2.0 mg/dL (<2.0) 06/12/19 Unknown Ur Leukocyte Esterase Lg (Negative) 06/12/19 Unknown Urine WBC (Auto) 34.0 /HPF (0.0-6.0) H 06/12/19 Unknown Urine RBC (Auto) 13.0 /HPF (0.0-6.0) 06/12/19 Unknown U Epithel Cells (Auto) 2.0 /HPF (0-13.0) 06/12/19 Unknown Urine Bacteria (Auto) 1+ /HPF (Negative) 06/12/19 Unknown Urine Mucus Few /HPF 06/12/19 Unknown Assessment and Plan Assessment and plan: 64-year-old woman with a history of hypertension, diabetes, chronic pain with a nerve stimulator was brought to the emergency room with complaints of slurred speech for an hour, feeling dizzy upon standing. Agree with neurology consult, aspirin, statin, add echo, carotid Doppler
[2019-06-13] MEDS ORDERED: SODIUM CHLORIDE 0.9% 1000 ML 1,000 ML IV SCH (03:00)
[2019-06-13] MEDS: oxyCODONE /ACETAMINOPHEN 5-325MG TAB PO PRN ×3 (05:28→22:14)
[2019-06-13] MEDS ORDERED: ENOXAPARIN 30 MG/0.3 ML INJ SUB-Q SCH (10:00)
--- NOTE | 2019-06-13 11:02 | Vascular Lab Report ---
"DUPLEX DOPPLER ULTRASOUND CAROTID, BILATERAL INDICATION: tia. FINDINGS: RIGHT CAROTID: Mild plaque Right CCA velocity: 56 cm/sec. Right ICA peak systolic velocity: 68 cm/sec. ICA/CCA PSV Ratio: 1.2. Right Vertebral Artery: Antegrade flow. LEFT CAROTID: Mild plaque Left CCA velocity: 69 cm/sec. Left ICA peak systolic velocity: 77 cm/sec. ICA/CCA PSV Ratio: 1.1. Left Vertebral Artery: Antegrade flow. IMPRESSION: 1. Right Internal Carotid Artery: Less than 50% diameter stenosis. 2. Left Internal Carotid Artery: Less than 50% diameter stenosis. Velocity criteria are extrapolated from diameter data as defined by the Society of Radiologists in Ul trasound Consensus Conference, Radiology 2003; 229;340-346. Degree of Stenosis (%) || ICA PSV (cm/sec) || Plaque estimate (%) || ICA/CCA PSV Ratio Normal <125 None <2.0 <50 <125 <50 <2.0 50-69 125-230 50 2.0-4.0 70 but less than 100 >230 50 >4.0 Near occlusion High, low, or none visible variable Total occlusion None visible; no lumen N/A Signer Name: Fly Stern MD Signed: 06/13/2019 10:58 AM Workstation Name: [id number]"
[2019-06-13 11:13] LABS: Hematocrit 38.6 % (30.3-42.9); Hemoglobin 13.1 gm/dl (10.1-14.3); Mean Corpuscular HGB Conc 34 % (30-34); Mean Corpuscular Volume 86 fl (79-97); Platelet Count 237 K/mm3 (140-440); Red Cell Distribution Width 13.8 % (13.2-15.2)
[2019-06-13] MEDS: INSULIN LISPRO 100 UNIT/ML SUB-Q SCH ×4 (11:31→21:50)
[2019-06-13 11:36] LABS: BUN/Creatinine Ratio 16; Blood Urea Nitrogen 13 mg/dL (7-17); Hemolysis Index 1
[2019-06-13] MEDS: ASPIRIN 81 MG TAB CHEW PO SCH (11:36)
--- NOTE | 2019-06-13 13:48 | Event Note ---
Date: 06/13/19 Patient with slurred speech, now resolved. cannot do MRI Brain because of hardware. I have seen and examined her. Neurology to see.
--- NOTE | 2019-06-13 18:03 | Consultation ---
History of Present Illness Consult date: 06/13/19 Reason for Consult: Unsteady gait, slurred speech Chief complaint: Slurred speech, unsteady gait, dizziness History of present illness: Patient is 64-year-old woman with a history of diabetes, posture arthritis, IBS, hypertension, hyperlipidemia, chronic back pain history of spinal cord stimulator placement. Yesterday at approximately 7:30, the patient was having dinner with family, when she began to feel somewhat dizzy. She stated that she had not been feeling well at that time, and felt that she had unsteady gait when trying to walk. Her family then noted that the patient is having slurred speech and seemed confused when talking. The patient reportedly had difficulty completing sentences. Symptoms lasted for approximately 1-2 hours prior to resolving. The patient also states that she sometimes feels lightheaded when standing up. She stated that for the past 2 days she had also been feeling unwell, and had noted that she had been somewhat confused in daily activities during that time period. Patient also states that she occasionally has difficulty with remembering minor daily details, which has been going on for the past few years. Past History Past Medical History: arthritis, diabetes, hypertension, renal failure (IBS), other (chronic back pain, debility ambulates with walker/cane at baseline) Past Surgical History: cholecystectomy, (x2), tonsillectomy, Other (Bilateral tubal ligation, multiple back surgeries, nerve stimulator) Social history: Lives alone Family history: hypertension Medications and Allergies Allergies Allergy/AdvReac Type Severity Reaction Status Date / Time morphine Allergy Unknown Unverified 03/17/16 11:00 doxycycline calcium AdvReac Unknown Unverified 03/17/16 11:00 [From Vibramycin] doxycycline hyclate AdvReac Unknown Unverified 03/17/16 11:00 [From Vibramycin] doxycycline monohydrate AdvReac Unknown Unverified 03/17/16 11:00 [From Vibramycin] Penicillins AdvReac Unknown Unverified 03/17/16 11:00 sulfamethoxazole AdvReac Unknown Unverified 03/17/16 11:00 [From Septra] trimethoprim [From Septra] AdvReac Unknown Unverified 03/17/16 11:00 venlafaxine AdvReac Unknown Unverified 03/17/16 11:00 CLENDAMYACIN AdvReac Unknown Uncoded 03/17/16 11:00 Home Medications Medication Instructions Recorded Confirmed Last Taken Type HYDROcodone/ACETAMINOPHEN [[place] 1 each PO Q6H PRN #10 tablet 03/22/18 Unknown Rx 5-325 Tablet] Amitiza 24 mg PO PRN 06/13/19 06/13/19 06/06/19 History Aspirin BABY CHEW TAB 81 mg PO ONCE 06/13/19 06/13/19 Unknown History AtorvaSTATin 20 mg PO ONCE 06/13/19 06/13/19 06/12/19 22:50 History Benadryl 06/13/19 Unknown History Calcium 600MG TAB 600 mg PO ONCE 06/13/19 06/13/19 06/12/19 19:35 History 600 mg Dicyclomine 10 mg PO TID 06/13/19 06/13/19 Unknown History Fish Oil 06/13/19 Unknown History Inderal 80 mg PO ONCE 06/13/19 06/13/19 06/12/19 19:35 History 80 mg Januvia 100 mg PO ONCE 06/13/19 06/13/19 06/11/19 22:50 History 100 mg Multivitamin Tab PO ONCE 06/13/19 06/12/19 10:20 History 1 tab Neurontin 800 mg PO TID 06/13/19 06/13/19 Unknown History Norvasc 10 mg PO ONCE 06/13/19 06/13/19 06/12/19 10:15 History 10 mg Protonix TAB 40 mg PO ONCE 06/13/19 06/13/19 Unknown History Ranitidine HCl 300 mg PO ONCE 06/13/19 06/13/19 Unknown History Vitamin B Complex PO ONCE 06/13/19 06/12/19 10:15 History Zyrtec 10mg tab 10 mg PO ONCE 06/13/19 06/13/19 06/12/19 10:20 History glipiZIDE 10 mg PO BID 06/13/19 06/13/19 06/12/19 19:35 History tiZANidine 4 mg PO Q6HR 06/13/19 06/13/19 06/12/19 20:30 History 4 mg traZODone 50 mg PO PRN 06/13/19 06/13/19 06/11/19 22:55 History Active Meds: Active Medications Acetaminophen (Tylenol) 650 mg PO Q4H PRN PRN Reason: Pain, Mild (1-3) Aspirin (Baby Aspirin) 81 mg PO QDAY [facility] Last Admin: 06/13/19 11:36 Dose: 81 mg Documented by: Atorvastatin Calcium (Lipitor) 40 mg PO QHS [facility] Dextrose (D50w (25gm) Syringe) 0 ml IV Q30MIN PRN PRN Reason: Hypoglycemia Enoxaparin Sodium (Enoxaparin) 40 mg SUB-Q QDAY@1000 MESSI Levofloxacin/Dextrose (Levaquin 250mg/50ml) 250 mg in 50 mls @ 50 mls/hr IV Q24HR [facility] Insulin Human Lispro (Humalog) 0 unit SUB-Q ACHS [facility]; Protocol Last Admin: 06/13/19 12:37 Dose: Not Given Documented by: Ondansetron HCl (Zofran) 4 mg IV Q6H PRN PRN Reason: Nausea And Vomiting Oxycodone/Acetaminophen (Percocet 5/325) 2 tab PO Q6H PRN PRN Reason: Pain, Moderate (4-6) Last Admin: 06/13/19 12:29 Dose: 2 tab Documented by: Sodium Chloride (Sodium Chloride Flush Syringe 10 Ml) 10 ml IV BID [facility] Last Admin: 06/13/19 11:36 Dose: 10 ml Documented by: Sodium Chloride (Sodium Chloride Flush Syringe 10 Ml) 10 ml IV PRN PRN PRN Reason: LINE FLUSH Review of Systems All systems: negative Neurological: change in speech, change in mentation, balance difficulties Physical Examination - Vital Signs Vital Signs: Vital Signs Pulse Resp BP Pulse Ox 68 11 L 93/67 95 06/12/19 22:30 06/12/19 22:30 06/12/19 22:30 06/12/19 22:30 - Physical Exam Narrative exam: Patient is awake, alert, oriented X4. Follows complex commands. EOMI, VFF, PERRL, no facial weakness noted, tongue midline, bilaterally intact to light touch. No dysarthria or aphasia noted. Sensations bilaterally intact to light touch in bilateral upper extremities, normal in left lower extremity, however patient states that she has chronic paresthesias and right lower extremity and therefore has decreased sensation in the right leg. Strength is 5/5 in bilateral upper extremities, limited to pain (due to chronic back pain) in bilateral lower extremities with right lower extremity strength 3 out of 5, and left lower extremity strength 4 out of 5. 2+ reflexes throughout. Bilaterally intact to finger to nose and heel to otoole. - Constitutional General appearance: comfortable - EENT EENT: Present: ATNC, PERRL, mucous membranes moist, hearing intact, vision intact - Respiratory Respiratory: Present: lungs clear, normal breath sounds - Cardiovascular Cardiovascular: Present: regular rate, normal S1, normal S2 Extremities: Present: no clubbing, cyanosis, no inflammation - Gastrointestinal Gastrointestinal: Present: normoactive bowel sounds, soft, non-tender - Integumentary Integumentary: Present: normal - Musculoskeletal Musculoskeletal: Present: no fluid collection - Psychiatric Psychiatric: Present: mood/affect appropriate - Level of Consciousness 1a. Level of Consciousness: alert/keenly responsive - LOC Questions 1b. LOC Questions: answers both correctly - LOC Command 1c. LOC Commands: performs tasks correctly - Best Gaze 2. Best Gaze: normal - Visual 3. Visual: no visual loss - Facial Palsy 4. Facial Palsy: normal symmetrical movement - Motor Arm 5a. Motor Arm Left: no drift 5b. Motor Arm Right: no drift - Motor Leg 6a. Motor Leg Left: no drift 6b. Motor Leg Right: drift (limited due to chronic lumbar back pain) - Limb Ataxia 7. Limb Ataxia: absent - Sensory 8. Sensory: mild/moderate sensory loss (chronic decreased RLE sensation) - Best Language 9. Best Language: no aphasia - Dysarthria 10. Dysarthria: normal - Extinction and Inattention 11. Extinction/Inattention: no abnormality - Scoring Total Score: 2 Stroke Severity: Minor Stroke Results - Laboratory Findings CBC and BMP: 06/13/19 10:27 06/13/19 10:27 Abnormal Lab Findings: Abnormal Labs 06/12/19 06/12/19 06/12/19 22:39 22:39 23:07 WBC 11.9 H [place] % (Auto) 7.8 H [place] # 0.9 H Sodium 135 L 134 L Chloride 95.5 L 95.8 L BUN 23 H 22 H Creatinine 1.6 H 1.6 H Glucose 209 H 208 H Hemoglobin A1c TSH Free T4 Urine WBC (Auto) 06/12/19 06/12/19 06/13/19 23:07 Unknown 02:29 WBC [place] % (Auto) [place] # Sodium Chloride BUN Creatinine Glucose Hemoglobin A1c 7.6 H TSH 5.040 H Free T4 1.54 H Urine WBC (Auto) 34.0 H Assessment and Plan Patient is 64-year-old woman with a history of diabetes, posture arthritis, IBS, hypertension, hyperlipidemia, chronic back pain history of spinal cord stimulator placement, who p/w slurred speech, unsteady gait, which lasted about 1-2 hours. According the patient's clinical findings, it is possible that she's had TIA. Alternatively, the patient's symptoms of unsteady gait and confusion may been due to UTI and AKA of which were discovered on admission. It is also possible that the patient may have orthostatic hypotension, as she states that she frequently has lightheadedness when standing up. Plan: 1. TIA vs. metabolic encephalopathy 2/2 UTI and ALY - CT head unremarkable - Will repeat CT head, as patient unable to have MRI due to spinal cord stimulator - CUS: no significant stenosis - Check CTA head - Echo: EF 50-55%, bubble study negative. - Check orthostatic vital signs - Continue to treat UTI and ALY per primary team - As patient may have had a TIA, will recommend for patient to be placed on dual anti-platelet therapy with ASA 81mg daily and Plavix 75mg daily for 1 month, after which Plavix can be stopped. - Cont. statin. 2. Hypertension: - Recommend target normotension, as patient's symptoms have resolved. - Will continue to monitor patient. Thank you for allowing me to take part in the care of this patient. Yahir Singh MD Neurology
--- NOTE | 2019-06-13 20:02 | Cat Scan Report ---
CT head/brain wo con INDICATION / CLINICAL INFORMATION: 64 years Female; Possible stroke. TECHNIQUE: Routine CT head without contrast. All CT scans at this location are performed using CT dos e reduction for ALARA by means of automated exposure control. COMPARISON: 06/12/2019 FINDINGS: BRAIN / INTRACRANIAL CONTENTS: No acute hemorrhage, mass effect, midline shift, hydrocephalus, or acu te, large territorial infarct. No chronic infarct or focal atrophy. No significant white matter abnor mality. CRANIOCERVICAL JUNCTION: No significant abnormality. ORBITS: No significant abnormality of visualized orbits. SINUSES / MASTOIDS: No significant abnormality the visualized paranasal sinuses or mastoid air cells. ADDITIONAL FINDINGS: None. IMPRESSION: 1. No focal mass, hemorrhage, hydrocephalus, or acute, large territorial infarct. Signer Name: Jersey Patel MD, III Signed: 06/13/2019 7:58 PM Workstation Name: [id number]
--- NOTE | 2019-06-13 20:09 | Cat Scan Report ---
CT angio head INDICATION / CLINICAL INFORMATION: 64 years Female; MAIN: Possible stroke: 100ml Omni 350. TECHNIQUE: Thin cut axial images obtained through the head during IV bolus contrast administration. S agittal, coronal, and 3 plane MIP reconstructions performed by the technologist. NASCET type criteria used evaluate stenoses. Automated exposure control utilized for radiation reduction purposes. COMPARISON: None available. FINDINGS: INTERNAL CAROTID ARTERIES: No significant narrowing appreciated. VERTEBROBASILAR SYSTEM: No significant narrowing appreciated. DISTAL BRANCHES: Distal branches of the anterior, middle, and posterior cerebral arteries are fairly symmetric in appearance and number. ANEURYSM: None identified. ADDITIONAL FINDINGS: Mild degenerative changes seen in the cervical spine - disc space narrowing and disc disease seen at C3-4 and C4-5. There is slight encroachment upon the cervical cord. IMPRESSION: No significant narrowing appreciated on this CTA of the head. Signer Name: Jersey Patel MD, III Signed: 06/13/2019 8:04 PM Workstation Name: [id number]
[2019-06-14 06:47] LABS: Basophils % (Auto) 0.3 % (0.0-1.8); Eosinophils # (Auto) 0.2 K/mm3 (0.0-0.4); Eosinophils % (Auto) 2.1 % (0.0-4.3); Hematocrit 39.3 % (30.3-42.9); Lymphocytes # (Auto) 2.1 K/mm3 (1.2-5.4); Mean Corpuscular HGB Conc 33 % (30-34); Mean Corpuscular Volume 85 fl (79-97); Monocytes # (Auto) 0.7 K/mm3 (0.0-0.8); Monocytes % (Auto) 9.3 % (0.0-7.3); Platelet Count 227 K/mm3 (140-440); Red Blood Count 4.61 M/mm3 (3.65-5.03); Red Cell Distribution Width 14.1 % (13.2-15.2)
[2019-06-14 07:07] LABS: BUN/Creatinine Ratio 10; Blood Urea Nitrogen 9 mg/dL (7-17); Calcium 9.4 mg/dL (8.4-10.2); Chol/HDL Ratio 3.57 %; HDL Cholesterol 38 mg/dL (40-59); Hemolysis Index 5; LDL Cholesterol,Direct 78 mg/dL (50-130)
[2019-06-14] MEDS: INSULIN LISPRO 100 UNIT/ML SUB-Q SCH ×2 (09:14→12:30)
[2019-06-14] MEDS: ASPIRIN 81 MG TAB CHEW PO SCH (09:17)
[2019-06-14] MEDS ORDERED: ENOXAPARIN 40 MG/0.4 ML INJ SUB-Q SCH (10:00)
[2019-06-14] MEDS ORDERED: CLOPIDOGREL 75 MG TAB PO SCH (10:00)
--- NOTE | 2019-06-14 11:28 | Progress Note ---
Assessment and Plan Patient is 64-year-old woman with a history of diabetes, posture arthritis, IBS, hypertension, hyperlipidemia, chronic back pain history of spinal cord stimulator placement, who p/w slurred speech, unsteady gait, which lasted about 1-2 hours. According the patient's clinical findings, it is possible that she's had TIA. Alternatively, the patient's symptoms of unsteady gait and confusion may been due to UTI and AKA of which were discovered on admission. It is also possible that the patient may have orthostatic hypotension, as she states that she frequently has lightheadedness when standing up. Plan: 1. TIA vs. metabolic encephalopathy 2/2 UTI and ALY - CT head unremarkable - Repeat CT head did not show any interval changes. - CUS: no significant stenosis - CTA head: no significant stenosis. - Echo: EF 50-55%, bubble study negative. - Orthostatic vital signs: No evidence of orthostatic hypotension. - Continue to treat UTI and ALY per primary team - As patient may have had a TIA, will recommend for patient to be placed on dual anti-platelet therapy with ASA 81mg daily and Plavix 75mg daily for 1 month, after which Plavix can be stopped. - Cont. statin. LDL 78. Goal LDL <70. - Recommend for patient to follow up with neurology as outpatient 3-4 weeks after discharge. 2. Hypertension: - Recommend target normotension, as patient's symptoms have resolved. - Will sign off as neurologic investigations are complete, and treatment plan is in place. Please call with any questions. Thank you for allowing me to take part in the care of this patient. Yahir Singh MD Neurology Subjective Date of service: 06/14/19 Principal diagnosis: TIA Interval history: Patient c/o mild nausea this morning. Objective - Exam Narrative Exam: Patient is awake, alert, oriented X4. Follows complex commands. EOMI, VFF, PERRL, no facial weakness noted, tongue midline, bilaterally intact to light touch. No dysarthria or aphasia noted. Sensations bilaterally intact to light touch in bilateral upper extremities, normal in left lower extremity, however patient states that she has chronic paresthesias and right lower extremity and therefore has decreased sensation in the right leg. Strength is 5/5 in bilateral upper extremities, limited to pain (due to chronic back pain) in bilateral lower extremities with right lower extremity strength 3 out of 5, and left lower extremity strength 4 out of 5. 2+ reflexes throughout. Bilaterally intact to finger to nose and heel to otoole. - Vital Sign Vital Signs - 12hr 06/13/19 06/14/19 06/14/19 23:29 04:44 08:07 Temperature 97.9 F 98.0 F 98.1 F Pulse Rate 92 H 89 104 H Respiratory 18 24 18 Rate Blood Pressure 120/80 142/88 147/85 O2 Sat by Pulse 93 96 97 Oximetry - General Apperance Constitutional: comfortable - EENT EENT: ATNC, PERRL, mucous membranes moist, hearing intact, vision intact - Respiratory Respiratory: lungs clear, normal breath sounds - Cardiovascular Cardiovascular: regular rate, normal S1, normal S2 Extremities: no clubbing, cyanosis, no inflammation - Gastrointestinal Gastrointestinal: normoactive bowel sounds, soft, non-tender - Integumentary Integumentary: normal - Musculoskeletal Musculoskeletal: no fluid collection - Psychiatric Psychiatric: mood/affect appropriate - Laboratory Findings CBC and BMP: 06/14/19 05:56 06/14/19 05:56 Abnormal Lab Findings: Abnormal Labs 06/12/19 06/12/19 06/12/19 22:39 22:39 23:07 WBC 11.9 H [place] % (Auto) 7.8 H [place] # 0.9 H Sodium 135 L 134 L Chloride 95.5 L 95.8 L BUN 23 H 22 H Creatinine 1.6 H 1.6 H Glucose 209 H 208 H POC Glucose Hemoglobin A1c Triglycerides HDL Cholesterol TSH Free T4 Urine WBC (Auto) 06/12/19 06/12/19 06/13/19 23:07 Unknown 02:29 WBC [place] % (Auto) [place] # Sodium Chloride BUN Creatinine Glucose POC Glucose Hemoglobin A1c 7.6 H Triglycerides HDL Cholesterol TSH 5.040 H Free T4 1.54 H Urine WBC (Auto) 34.0 H 06/13/19 06/14/19 06/14/19 16:49 05:56 05:56 WBC [place] % (Auto) 9.3 H [place] # Sodium Chloride BUN Creatinine Glucose 102 H POC Glucose 137 H Hemoglobin A1c Triglycerides 205 H HDL Cholesterol 38 L TSH Free T4 Urine WBC (Auto) 06/14/19 08:17 WBC [place] % (Auto) [place] # Sodium Chloride BUN Creatinine Glucose POC Glucose 112 H Hemoglobin A1c Triglycerides HDL Cholesterol TSH Free T4 Urine WBC (Auto)
[2019-06-14 12:04] VITALS: BP 129/89
--- NOTE | 2019-06-14 14:24 | Discharge Summary ---
Providers - Providers Date of Admission: 06/13/19 03:53 Date of discharge: 06/14/19 Attending physician: SARITA BELTRAN 06/13/19 02:17 Consult to Dietitian/Nutrition [CONS] Routine Physician Instructions: Reason For Exam: Reason for Consult: Nutrition Recommendations Reason for Consult: Diet education Occupational Therapy Evaluate and Treat [CONS] Routine Comment: Reason For Exam: Neuro deficits Physical Therapy Evaluation and Treat [CONS] Routine Comment: Reason For Exam: Neuro deficits 06/13/19 02:28 Consult to Physician [CONS] Routine Comment: Consulting Provider: AQUILINO MOBLEY Physician Instructions: Reason For Exam: slurred speech x 1hour Primary care physician: RYNE Serrano Condition: Fair Disposition: DC-01 TO HOME OR SELFCARE Exam - Constitutional Vitals: Temp Pulse Resp BP Pulse Ox 98.2 F 96 H 18 129/89 97 06/14/19 11:00 06/14/19 11:00 06/14/19 11:00 06/14/19 11:00 06/14/19 11:00 Plan Activity: advance as tolerated Diet: low fat, low cholesterol, low salt Plan of Treatment: 1.Follow up with PCP in 1 week. 2.Follow up with Neurology in 2 weeks. Assessment: 1,TIA 2.UTI 3.ALY Follow up with: PRIMARY CARE, [Referring] - 3-5 Days Prescriptions: Clopidogrel [Plavix] 75 mg PO QDAY #30 tablet
== END 2019-06-14 18:03 | disposition home or self-care (01) ==
LOC: ED 22:17 → 4A 06-13 03:53 → INTOOBSV 06-13 03:53 → 4A 06-13 22:53
PROVIDERS: ADMIT Internal Medicine; ATTEND Internal Medicine
DX: R47.81 Slurred speech (principal); N39.0 Urinary tract infection, site not specified; R42 Dizziness and giddiness; I95.9 Hypotension, unspecified; I10 Essential (primary) hypertension; E11.9 Type 2 diabetes mellitus without complications; M19.90 Unspecified osteoarthritis, unspecified site; M54.5 Low back pain; G89.29 Other chronic pain; Z90.49 Acquired absence of other specified parts of digestive tract; Z98.891 History of uterine scar from previous surgery; Z79.82 Long term (current) use of aspirin
CPT/HCPCS: 36415; 70450; 70496; 71045; 80048; 80053; 80061; 81001; 82140; 82962; 83036; 84439; 84443; 84484; 85025; 85027; 85610; 85730; 87040; 87086; 87116; 93005; 93010; 93306; 93880; 96361; 96365; 96366; 96372; 96375; 97162; 97165; 99284; A9270; G0378; J1650; J1956; J2405; J7030; Q9967